=== PATIENT | male | born 2000 | race Caucasian/White ===

== ENCOUNTER → 2025-11-10 | Outpatient (CLI) | payer OTHER ==
[~2025-11-10] MED LIST: PROHANCE 279.3MG/ML 15ML VIAL ONE; PROHANCE 279.3MG/ML 5ML VIAL ONE
== END ==
LOC: M PLAIMG 10:46
PROVIDERS: ATTEND Physician Assistant Medical
DX: R42 Dizziness and giddiness (principal)
CPT/HCPCS: 70553; A9579